=== PATIENT | male | born 1960 | race Caucasian/White ===

== ENCOUNTER 2019-08-20 08:28 | Day surgery (SDC) | payer OTHER ==
[2019-08-18 14:59] VITALS: BMI 24.4
[~2019-08-20 08:28] MED LIST: LACTATED RINGERS 1,000 ML IV SCH
[2019-08-20] MEDS ORDERED: LIDOCAINE 1% 20 ML VIAL (10MG/ML) FOR IV START INTRADERMA ONE (08:55)
[2019-08-20 08:59] VITALS: TEMP 97.3
[2019-08-20] MEDS ORDERED: PROPOFOL 10 MG/ML 20 ML VIAL IV ONE (09:20)
--- NOTE | 2019-08-20 09:52 | P.PCN ---
Date of Procedure: 08/20/19 Description of Procedure: BRIEF HISTORY: Patient is a 59-year-old pleasant male scheduled for an elective colonoscopy as a part of evaluation of anemia. Denies any change in bowel habits, blood per rectum or abdominal pain. Last colonoscopy at 44 and normal per his recollection. No family history of colon cancer. PROCEDURE PERFORMED: Colonoscopy with polypectomy. PREOPERATIVE DIAGNOSIS: Anemia, last colonoscopy 15 years ago. ESTIMATED BLOOD LOSS: Minimal. IV sedation per Anesthesia. PROCEDURE: After informed consent was obtained, the patient, was brought into the endoscopy unit. IV sedation was administered by Anesthesia under continuous monitoring. Digital rectal examination was normal. Initially the Olympus CF-190 flexible video colonoscope was then inserted in the rectum, gradually advanced into the cecum without any difficulty. Careful examination was performed as the scope was gradually being withdrawn. Ileocecal valve and the appendiceal orifice were visualized and appeared normal. Prep was excellent. Mucosa of the cecum, ascending colon, transverse colon, descending colon, sigmoid colon, and rectum appeared normal. Diminutive 1 mm cecal polyp removed with cold forcep polypectomy. Retroflexion was performed in the rectum and no lesions were seen, low-grade internal hemorrhoids noted. The patient tolerated the procedure well. IMPRESSION: Diminutive cecal polyp removed with cold forceps. Low-grade internal hemorrhoids. Normal-appearing colon from rectum to cecum. RECOMMENDATIONS: Findings of this examination were discussed with the patient and his . Okay to resume diet. Okay to resume medications. Follow up pathology from polypectomy. Anticipate repeat colonoscopy in 5-10 years pending pathology from polypectomy.
[2019-08-20 10:17] VITALS: BP 135/81; PULSE 65; RESP 18
== END 2019-08-20 10:23 | disposition home or self-care (01) ==
LOC: ORWHC2ENDO 08:28
PROVIDERS: ATTEND Internal Medicine
DX: D12.0 Benign neoplasm of cecum (principal); D64.9 Anemia, unspecified; K64.8 Other hemorrhoids; Z91.013 Allergy to seafood; Z91.030 Bee allergy status; Z87.891 Personal history of nicotine dependence; Z79.899 Other long term (current) drug therapy; Z90.89 Acquired absence of other organs; Z98.890 Other specified postprocedural states; N42.9 Disorder of prostate, unspecified
CPT/HCPCS: 88305; 45380; J2704

== ENCOUNTER 2020-12-27 09:06 | Day surgery (SDC) | payer OTHER ==
[2020-12-22 13:21] VITALS: BMI 24.9
[~2020-12-27 09:06] MED LIST changes: +LIDOCAINE 1% (10MG/ML) FOR IV START INTRADERMA PRN
[2020-12-27 09:40] VITALS: RESP 16; TEMP 97
[2020-12-27] MEDS ORDERED: PROPOFOL 10 MG/ML 20 ML VIAL IV ONE (09:55)
[2020-12-27] MEDS ORDERED: fentaNYL (PF) 50 MCG/ML 2 ML AMP ONE (09:55)
[2020-12-27] MEDS ORDERED: LIDOCAINE 1% INJ 10MG/ML (20 ML MDV) ONE (09:55)
[2020-12-27] MEDS ORDERED: MIDAZOLAM 2 MG/2 ML VIAL ONE (09:55)
--- NOTE | 2020-12-27 10:23 | P.PCN ---
Date of Procedure: 12/27/20 Description of Procedure: BRIEF HISTORY: Patient is a 60-year-old male presenting for outpatient es ophagogastroduodenoscopy for evaluation of symptoms of heartburn. He shouldn't with symptoms of shortness of breath with negative workup from pulmonary. He reports shortness of breath which is intermittent and positional. He also has episodes of heartburn several times per week with associated solid food dysphagia. PROCEDURE PERFORMED: Esophagogastroduodenoscopy with biopsy. PREOPERATIVE DIAGNOSIS: Heartburn, esophageal dysphagia. ESTIMATED BLOOD LOSS: Minimal. IV sedation per anesthesia. PROCEDURE: After informed consent was obtained, the patient was brought into the endoscopy unit. IV sedation was administered by Anesthesia under continuous monitoring. Initially the Olympus GIF-190 video endoscope was inserted into the mouth. Esophagus intubated without any difficulty. It was gradually advanced into the stomach and duodenum and carefully examined. The bulb and the second part of the duodenum appeared normal, With biopsies taken. The scope at this time was withdrawn to the stomach, adequately insufflated with air, and upon careful examination, mucosa of the antrum, body, cardia and the fundus appeared normal, except for moderate erythema and some superficial erosions in the antrum and body suggestive of moderate gastritis with biopsies of antrum and body takens then withdrawn into the esophagus. The GE junction was located at 41 cm from the incisors. The esophagus appeared normal, with biopsies taken of the lower esophagus and midesophagus . There were no erosions or ulcerations seen and the patient tolerated the procedure well. IMPRESSION: 1. Moderate gastritis. 2. Biopsies of the duodenum, antrum and body, lower esophagus and midesophagus. RECOMMENDATIONS: The findings of this examination were discussed with the patient .and his family. Okay to resume diet. Okay to resume medications. Await pathology from biopsies. Previously the patient was recommended a trial of PPI therapy and was not interested in medical therapy at this time, again patient may benefit from a trial of OTC Prilosec daily to see if this also symptoms. Follow up in GI clinic as scheduled.
[2020-12-27 10:35] VITALS: BP 130/84; PULSE 57
== END 2020-12-27 10:50 | disposition home or self-care (01) ==
LOC: ORWHC2ENDO 09:06
PROVIDERS: ATTEND Internal Medicine
DX: K29.50 Unspecified chronic gastritis without bleeding (principal); K20.0 Eosinophilic esophagitis; R13.14 Dysphagia, pharyngoesophageal phase; Z90.89 Acquired absence of other organs; Z98.890 Other specified postprocedural states; Z98.42 Cataract extraction status, left eye; Z98.41 Cataract extraction status, right eye; Z87.891 Personal history of nicotine dependence; Z79.899 Other long term (current) drug therapy; Z91.030 Bee allergy status; Z91.013 Allergy to seafood
CPT/HCPCS: 88305; 43239; J2250; J2001; J3010; J2704

== ENCOUNTER → 2022-05-17 | Outpatient (CLI) | payer OTHER ==
--- NOTE | 2022-05-18 05:55 | MR ---
EXAMINATION TYPE: MR cervical spine wo con DATE OF EXAM: 05/17/2022 COMPARISON: None HISTORY: Neck pain FINDINGS: There is a mild cervical kyphotic deformity at the C5-6 level with severe narrowing of the disc space anteriorly at C5-6. There is disc space narrowing at C5-6 and C6-7. There is widening of the intersp inous space at C5-6. Cervical spinal cord shows no edema. Brainstem is intact. No acute fracture seen . There is no cervical paraspinal mass. No evidence of any significant cervical spinal stenosis. IMPRESSION: Anterior fusion of the C5 and C6 vertebra with mild straightening and kyphotic deformity. There is wi dening of the posterior interspinous space at the C5-6 level that could relate to old ligamentous tea r. No acute bony abnormality.
== END | disposition home or self-care (01) ==
LOC: RADMRIMAIN 09:07
DX: M40.202 Unspecified kyphosis, cervical region (principal); Z98.1 Arthrodesis status
CPT/HCPCS: 72141

== ENCOUNTER → 2023-11-13 | Outpatient (CLI) | payer OTHER ==
--- NOTE | 2023-11-13 11:52 | CA ---
Exercise Stress Test Report Name: Alphonse Boyd Exam Date: 11/13/2023 10:20 Exam Location: [place] Stress Ht (in): 72 Wt (lb): 184 BSA: 2.06 Ordering Phys: Ricardo Malone DO Referring Phys: Samantha Harding PAC Technologist: John Andrade Age: 63 Gender: M : 1960 Procedure CPT: Indications: R06.00 Dyspnea ICD-10 Codes: Patient History: CHEST PAIN, DIFFICULTY IN BREATHING, FORMER SMOKER Medications: Meds past 24 hrs: Pretest Chest Pain: STRESS TEST Galen Protocol Exercise Duration (min:sec): 07:[address] Depressions (mm): Angina Score: Light Score: Resting HR (bpm): 78 Peak HR (bpm): 146 Resting BP (mmHg): 142 / 86 Peak BP (mmHg): 210 / 65 MPHR: 156 Target HR: 133 % MPHR: 94 METS: 8.9 Total Dose: Peak Dose: Atropine: Double Product: 21033 BP Response: Stress Termination: TARGET HR REACHED/MAX EXERTION Stress Symptoms: LIGHT HEADED Stress Summary: ECG ANALYSIS Resting ECG: Normal sinus rhythm normal axis normal intervals Stress ECG: Patient exercised on Galen protocol for 7 minutes achieving 85% of predicted maximum heart rate without chest pain. At peak exercise there was [address] segment depression in inferolateral leads CONCLUSIONS Average exercise tolerance Abnormal stress test by EKG criteria Dr. Zeus Wolff MD (Electronically Signed) Final Date: 13 November 2023 11:51
--- NOTE | 2023-11-13 13:07 | NM ---
EXAMINATION TYPE: DC stress cardiolite complete DATE OF EXAM: 11/13/2023 COMPARISON: NONE CLINICAL INDICATION: Male, 63 years old with lightheadedness, history of R06.00 DYSPNEA; TECHNIQUE: After the intravenous administration of 10.4 mCi Tc 99m Sestamibi - Rest images obtained 45 minutes post injection. The patient exercised using a AIRAM protocol and 1 minute prior to peak exercise was injected with 26.6 mCi Tc 99m Sestamibi - Stress images obtained 20 minutes post injecti on. FINDINGS: Targeted heart rate (133 BPM) was achieved during performance of the study (146 PM achieved with tota l exercise time 7 minutes). Review of stress and rest SPECT images demonstrates a small fixed perfusi on defect along the mid anterior wall. However, this is more pronounced on rest suggesting attenuatio n artifact. Gated analysis shows normal wall motion with an estimated left ventricular ejection frac tion of 61 %. TID is calculated at 0.87, within normal limits. IMPRESSION: No scintigraphic evidence for reversible ischemia
== END | disposition home or self-care (01) ==
LOC: RADNMMAIN 08:14
PROVIDERS: ATTEND Family Medicine
DX: R94.31 Abnormal electrocardiogram [ECG] [EKG] (principal); R06.00 Dyspnea, unspecified; R42 Dizziness and giddiness; R07.9 Chest pain, unspecified; Z87.891 Personal history of nicotine dependence
CPT/HCPCS: 93017; 78452; A9500

== ENCOUNTER → 2023-12-17 | Outpatient (CLI) | payer OTHER ==
--- NOTE | 2023-12-17 10:56 | CA ---
Lexiscan Nuclear Stress Test Report Name: Alphonse Boyd Exam Date: 12/17/2023 10:12 Exam Location: [place] Stress Ht (in): 72 Wt (lb): 185 BSA: 2.06 Ordering Phys: Ricardo Malone DO Referring Phys: Samantha Harding PAC Technologist: Jesus Koroma Age: 63 Gender: M : 1960 Procedure CPT: Indications: R00.2 palpitations ICD-10 Codes: Patient History: DIFFICULTY IN BREATHING, PALPITATIONS, NUMBNESS IN FACE/NECK Medications: Meds past 24 hrs: Pretest Chest Pain: STRESS TEST Lexiscan Protocol Exercise Duration (min:sec): 02:[address] Depressions (mm): Angina Score: Light Score: Resting HR (bpm): 56 Peak HR (bpm): 102 Resting BP (mmHg): 131 / 78 Peak BP (mmHg): / 86 MPHR: 156 Target HR: 133 % MPHR: 65 METS: 1.0 Total Dose: Peak Dose: Atropine: Double Product: BP Response: Stress Termination: INFUSION COMPLETE Stress Symptoms: NO SYMPTOMS Stress Summary: ECG ANALYSIS Resting ECG: Stress ECG: CONCLUSIONS Baseline EKG revealed a normal sinus rhythm without significant ST-T changes. With Lexiscan administration the heart rate changed from 56-97 bpm and blood pressure changed from 131/78- 144/86. Patient did not have any significant symptoms. By EKG criteria this is a unremarkable Lexiscan stress test. The nuclear scan results which are more pertinent will be reported by the radiologist Dr. Cristian Pavon MD (Electronically Signed) Final Date: 17 December 2023 10:55
--- NOTE | 2023-12-17 12:49 | NM ---
EXAMINATION TYPE: NM stress lexiscan cardiolite DATE OF EXAM: 12/17/2023 COMPARISON: 11/13/2023 CLINICAL INDICATION: Male, 63 years old with history of R00.2 PALPITATIONS; TECHNIQUE: After the intravenous administration of 10.3 mCi Tc 99m Sestamibi - Cardiolite resting SP ECT images acquired 48 minutes post injection. The patient received 0.4mg Lexiscan, 24.5 mCi Tc 99m Sestamibi - Stress images obtained [address] injection FINDINGS: Review of stress and rest SPECT images demonstrates no distinct perfusion abnormality. Gated analysi s shows normal wall motion with an estimated left ventricular ejection fraction of 70 %. IMPRESSION: No scintigraphic evidence for reversible ischemia.
== END | disposition home or self-care (01) ==
LOC: RADNMMAIN 08:50
PROVIDERS: ATTEND Family Medicine
DX: R00.2 Palpitations (principal); R06.02 Shortness of breath; R20.0 Anesthesia of skin
CPT/HCPCS: 93017; 78452; A9500

== ENCOUNTER 2024-06-18 08:08 | Day surgery (SDC) | payer OTHER ==
[2024-06-12 15:32] VITALS: BMI 25.0
[2024-06-18] MEDS: SODIUM CHLORIDE 0.9% 1,000 ML IV SCH (08:32)
[2024-06-18] MEDS: IV FLUID CONTINUATION 1,000 ML IV ONE (08:35)
[2024-06-18 08:43] VITALS: BP 135/84; PULSE 73; RESP 16; TEMP 97.8
--- NOTE | 2024-06-18 13:45 | P.EPPROC ---
- EP Procedure Note Electrophysiology Procedure Note: Diagnosis Recurrent presyncope 12 EKG shows sinus rhythm normal WI interval incomplete right bundle branch block normal ST-T segments normal QT interval Tilt table test per protocol Baseline blood pressure 134/84 mmHg, baseline heart rate 68 beats a minute Patient was tilted upright in angle of 70 degrees per protocol Heart rate and blood pressure remained stable No evidence for syncope No evidence for neurocardiogenic phenomena Impression Normal 12 EKG Normal heart rate and blood pressure response to upright tilting
== END 2024-06-18 11:11 | disposition home or self-care (01) ==
LOC: CATHEP 08:08
PROVIDERS: ATTEND Internal Medicine Clinical Cardiac Electrophysiology
DX: R55 Syncope and collapse (principal)
CPT/HCPCS: 93660